=== PATIENT | female | born 1990 ===

== ENCOUNTER 2018-05-17 09:41 | Emergency (ER) | payer OTHER ==
[2018-05-17 09:46] VITALS: TEMP 98.1
[2018-05-17] MEDS ORDERED: Sodium Chloride 0.9% 1,000 ML IV STA ×2 (10:13→12:43)
--- NOTE | 2018-05-17 10:15 | ED PDOC ---
HPI: Abdomen Time Seen by Provider: 05/17/18 09:55 Chief Complaint (Nursing): Abdominal Pain Chief Complaint (Provider): Abdominal Pain History Per: Patient History/Exam Limitations: no limitations Onset/Duration Of Symptoms: Worse Since, Other (2 years) Current Symptoms Are (Timing): Constant Location Of Pain/Discomfort: RUQ Quality Of Discomfort: "Pain" Associated Symptoms: denies: Fever, Nausea, Vomiting, Diarrhea, Chest Pain, Urinary Symptoms Additional Complaint(s): 27 year old female presents to the ED complaining of constant abdominal pain onset for 2 years. She reports the pain worsened since last night. Otherwise, patient denies fever, chills, cough, chest pain, shortness of breath, constipation, nausea, vomiting or diarrhea. Also denies vaginal bleeding, vaginal discharge, dysuria, frequency, hematuria, incontinence or back pain. PMD: no family provider Abnormal Vaginal Bleeding: No Past Medical History Reviewed: Historical Data, Nursing Documentation, Vital Signs Vital Signs: Last Vital Signs Temp 98.1 F 05/17/18 09:45 Pulse 72 05/17/18 09:45 Resp 15 05/17/18 09:45 BP 110/75 05/17/18 09:45 Pulse Ox 98 05/17/18 09:53 - Medical History PMH: No Chronic Diseases - Surgical History Surgical History: Appendectomy - Family History Family History: States: Unknown Family Hx - Social History Current smoker - smoking cessation education provided: No Alcohol: None Drugs: Denies - Immunization History Hx Tetanus Toxoid Vaccination: No Hx Influenza Vaccination: No Hx Pneumococcal Vaccination: No - Home Medications Home Medications: Ambulatory Orders Medication Instructions Recorded Ciprofloxacin HCl [Cipro] 500 mg PO BID 7 Days tab 05/17/18 Dicyclomine [Dicyclomine HCl] 10 mg PO DAILY PRN 5 Days cap 05/17/18 Famotidine [Pepcid] 20 mg PO DAILY PRN #6 tab 05/17/18 Ibuprofen [Motrin] 600 mg PO TID 7 Days tab 05/17/18 Metronidazole [Flagyl] 500 mg PO TID 7 Days tablet 05/17/18 - Allergies Allergies/Adverse Reactions: Allergies Allergy/AdvReac Type Severity Reaction Status Date / Time No Known Allergies Allergy Verified 05/17/18 10:12 Review of Systems ROS Statement: Except As Marked, All Systems Reviewed And Found Negative Constitutional: Negative for: Fever, Chills Cardiovascular: Negative for: Chest Pain Respiratory: Negative for: Cough, Shortness of Breath Gastrointestinal: Positive for: Abdominal Pain. Negative for: Nausea, Vomiting, Diarrhea, Constipation Genitourinary Female: Negative for: Dysuria, Frequency, Incontinence, Hematuria, Vaginal Discharge, Vaginal Bleeding Musculoskeletal: Negative for: Back Pain Physical Exam - Reviewed Nursing Documentation Reviewed: Yes Vital Signs Reviewed: Yes - Physical Exam Appears: Positive for: Non-toxic, No Acute Distress Head Exam: Positive for: ATRAUMATIC, NORMAL INSPECTION, NORMOCEPHALIC Skin: Positive for: Normal Color, Warm, Dry. Negative for: Rash Eye Exam: Positive for: EOMI, Normal appearance, PERRL ENT: Positive for: Normal ENT Inspection Neck: Positive for: Normal, Painless ROM, Supple. Negative for: Decreased ROM Cardiovascular/Chest: Positive for: Regular Rate, Rhythm. Negative for: Murmur Respiratory: Positive for: Normal Breath Sounds. Negative for: Decreased Breath Sounds, Wheezing, Respiratory Distress Gastrointestinal/Abdominal: Positive for: Tenderness (right upper quadrant and suprapubic ) Back: Positive for: Normal Inspection. Negative for: L CVA Tenderness, R CVA Tenderness Extremity: Positive for: Normal ROM. Negative for: Tenderness, Pedal Edema, Deformity Neurologic/Psych: Positive for: Alert, Oriented (x3), Gait (steady). Negative for: Motor/Sensory Deficits - Laboratory Results Result Diagrams: 05/17/18 10:19 05/17/18 10:19 Lab Results: no acute - ECG O2 Sat by Pulse Oximetry: 98 (RA) - CT Scan/US ct Other Rad Studies (CT/US): Read By Radiologist Other Rad Interpretation: colitis - Progress ED Course And Treament: 1827: Feels much better. AAOx3. Pain free. Tolerated po. Fu with pcp. Medical Decision Making Medical Decision Making: Time: 1011 Initial impression: abdominal pain Initial plan: CMP Lipase ED urine dipstick ED urine CBC w/ Differential Normal Saline 1000 mls/hr Pepcid 20mg Toradol 15mg Urinalysis Abdomen limited [US] Scribe Attestation: Documented by Kinga Correa, acting as a scribe for Donnie Gilbert MD Provider Scribe Attestation: All medical record entries made by the Scribe were at my direction and pers onally dictated by me. I have reviewed the chart and agree that the record accurately reflects my personal performance of the history, physical exam, medical decision making, and the department course for this patient. I have also personally directed, reviewed, and agree with the discharge instructions and disposition. Disposition - Clinical Impression Clinical Impression: Colitis - Patient ED Disposition Is Patient to be Admitted: No Counseled Patient/Family Regarding: Studies Performed, Diagnosis, Need For Followup, Rx Given - Disposition Referrals: [facility] [Outside] - 05/18/18 Disposition: Routine/Home Disposition Time: 18:27 Condition: STABLE Additional Instructions: Return if not better in 3 days. Prescriptions: Ciprofloxacin HCl [Cipro] 500 mg PO BID 7 Days tab Dicyclomine [Dicyclomine HCl] 10 mg PO DAILY PRN 5 Days cap PRN Reason: Gi Distress Famotidine [Pepcid] 20 mg PO DAILY PRN #6 tab PRN Reason: Pain Ibuprofen [Motrin] 600 mg PO TID 7 Days tab Metronidazole [Flagyl] 500 mg PO TID 7 Days tablet Instructions: Colitis Print Language: BULGARIAN
[2018-05-17 10:44] LABS: BASO % 0.5 % (0.0-2.0); EOS # 0.1 K/uL (0.0-0.7); EOS % 1.6 % (0.0-4.0); HEMOGLOBIN 12.6 g/dL (12.0-16.0); LYMPH # 1.9 K/uL (1.0-4.3); LYMPH % 28.4 % (20.0-40.0); MEAN CELL VOLUME 93.3 fl (81.0-99.0); MEAN CORPUSCULAR HEMOGLOBIN 30.4 pg (27.0-31.0); MEAN CORPUSCULAR HGB CONC 32.6 g/dL (33.0-37.0); MEAN PLATELET VOLUME 7.5 fl (7.2-11.7); MONO # 0.5 K/uL (0.0-0.8); NEUT # 4.2 K/uL (1.8-7.0); NEUT % 62.5 % (50.0-75.0); NRBC % 0.1 % (0.0-0.0); RBC 4.13 Mil/uL (3.80-5.20); RED CELL DISTRIBUTION WIDTH 13.3 % (11.5-14.5); WHITE BLOOD COUNT 6.7 K/uL (4.8-10.8)
[2018-05-17 10:53] LABS: SQUAMOUS EPITHIAL 5 /hpf (0-5); URINE BILIRUBIN NEGATIVE (NEGATIVE); URINE BLOOD NEGATIVE (NEGATIVE); URINE CLARITY SLIGHTY-CLOUDY (Clear); URINE COLOR YELLOW (YELLOW); URINE GLUCOSE (UA) NEG (NEGATIVE); URINE LEUKOCYTE ESTERASE TRACE Leu/uL (Negative); URINE PROTEIN NEGATIVE (NEGATIVE); URINE UROBILINOGEN 0.2-1.0 mg/dL (0.2-1.0)
[2018-05-17 10:55] LABS: ALB/GLOB RATIO 1.4 (1.0-2.1); ALBUMIN 4.4 g/dL (3.5-5.0); ALT/SGPT 34 U/L (9-52); AST/SGOT 32 U/L (14-36); BLOOD UREA NITROGEN 16 mg/dl (7-17); CALCIUM 9.2 mg/dL (8.4-10.2); GFR NON-AFRICAN AMERICAN > 60; LIPASE 83 U/L (23-300)
[2018-05-17] MEDS ORDERED: Iohexol 240 (50 ml) PO ONE (12:43)
[2018-05-17 12:44] VITALS: RESP 18
[2018-05-17] MEDS ORDERED: Iohexol 240 (50 ml) ONE (12:45)
[2018-05-17] MEDS ORDERED: Sodium Chloride 0.9% 50 ML IV ONE (14:49)
[2018-05-17] MEDS ORDERED: Iohexol 300 100 ML IJ ONE (14:49)
--- NOTE | 2018-05-17 15:24 | CT ---
Date of service: 05/17/2018 PROCEDURE: CT Abdomen and Pelvis with contrast HISTORY: abd pain COMPARISON: Limited abdomen ultrasound 05/17/2018 as well. TECHNIQUE: Following oral and intravenous contrast administration, a CT examination of the abdomen and pelvis performed from the domes of the diaphragms to the symphysis pubis with reformatted datasets provided not only axial but also sagittal and coronal series. Coronal and sagittal reformats were generated. Contrast dose: Omnipaque 300, 95 cc Radiation dose: Total exam DLP = 411.86 mGy-cm. This CT exam was performed using one or more of the following dose reduction techniques: Automated exposure control, adjustment of the mA and/or kV according to patient size, and/or use of iterative reconstruction technique. FINDINGS: LOWER THORAX: Unremarkable. LIVER: Unremarkable. No gross lesion or ductal dilatation. GALLBLADDER AND BILE DUCTS: Unremarkable. PANCREAS: Unremarkable. No gross lesion or ductal dilatation. SPLEEN: Unremarkable. ADRENALS: Unremarkable. No mass. KIDNEYS AND URETERS: Unremarkable. No hydronephrosis. No solid mass. VASCULATURE: Unremarkable. No aortic aneurysm. No aortic atherosclerotic calcification or mural plaque present. BOWEL: Stomach appears normal. There is no bowel obstruction. No definite pericolic or perienteric reactive change. While there is no gross mural thickening throughout the large bowel, occasional thickening of haustra markings in various segments of the ascending and descending colon may indicate segmental colitis. Clinically correlate further. APPENDIX: Not identified. No definite CT pattern of appendicitis at this time. PERITONEUM: Unremarkable. No free fluid. No free air. LYMPH NODES: Unremarkable. No enlarged lymph nodes. BLADDER: Urinary bladder not fully distended with thickening of the urinary bladder wall difficult to prove or exclude. REPRODUCTIVE: Unremarkable. BONES: No acute fracture. OTHER FINDINGS: None. IMPRESSION: Borderline pattern for subtle colitis at the ascending greater than descending colonic segments though this is not definite. Questionable thickening of the urinary bladder may indicate cystitis.
--- NOTE | 2018-05-17 15:26 | US ---
Date of service: 05/17/2018 HISTORY: ruq pain COMPARISON: None. TECHNIQUE: Sonographic evaluation of the right upper quadrant of the abdomen. FINDINGS: LIVER: Measures 12.0 cm in length. Normal echogenicity of the liver parenchyma. No mass. No intrahepatic bile duct dilatation. GALLBLADDER: Gallbladder appears distended but is otherwise nonacute appearing. No associated cholelithiasis. COMMON BILE DUCT: Measures 4.0 mm. No stones. No dilatation. PANCREAS: Pancreas is obscured extensively by overlying bowel gas. RIGHT KIDNEY: Measures 9.6 cm in length. Normal echogenicity. No calculus, mass, or hydronephrosis. AORTA: No aneurysmal dilatation. IVC: Unremarkable. OTHER FINDINGS: None . IMPRESSION: Distended but otherwise unremarkable appearing gallbladder. Pancreas completely obscured by overlying bowel gas. Remainder of the limited right upper quadrant ultrasound is otherwise unremarkable.
[2018-05-17] MEDS ORDERED: Ciprofloxacin 400mg/200ml D5W 400 MG/200 ML BAG IV STA (16:48)
[2018-05-17] MEDS ORDERED: metroNIDAZOLE 500mg/100ml NS 100 ML IV STA (16:48)
[2018-05-17] MEDS ORDERED: metroNIDAZOLE 500mg/100ml NS 100 ML IVPB ONE (18:07)
[2018-05-17 19:29] VITALS: BP 102/62; PULSE 72; O2SAT 100
== END 2018-05-17 18:33 | disposition home or self-care (01) ==
LOC: H.ER 09:41
DX: K52.9 Noninfective gastroenteritis and colitis, unspecified (principal)
CPT/HCPCS: 74177; 76705; 80053; 81003; 81025; 83690; 85025; 96361; 96365; 96367; 96375; 99284; J0744; J1885; J7030; Q9966; Q9967

== ENCOUNTER 2018-10-06 09:20 | Emergency (ER) | payer OTHER ==
[2018-10-06 09:26] VITALS: BP 106/71; RESP 18; O2SAT 100; BMI 29.5
[2018-10-06] MEDS ORDERED: Sodium Chloride 0.9% 1,000 ML IV STA (10:07)
--- NOTE | 2018-10-06 10:22 | ED PDOC ---
HPI: Female Pain Time Seen by Provider: 10/06/18 09:41 Chief Complaint (Nursing): Abdominal Pain Chief Complaint (Provider): Abdominal Pain History Per: Patient History/Exam Limitations: no limitations Onset/Duration Of Symptoms: Days (x 5) Current Symptoms Are (Timing): Still Present Quality Of Discomfort: "Pain" Associated Symptoms: Vomiting, Other (chills) Additional Complaint(s): 28 year old female with a history of colitis presents to the ED for evaluation of right sided abdominal pain, back pain and vomiting since last night. Patient reports pain has been present for several days intermittently. However, last night it worsened, she vomited several times and developed chills. Vomit was non-bloody and non-bilious. Patient did not take any medications for pain. Denies urinary symptoms, diarrhea and fever. PMD: none provided Past Medical History Reviewed: Historical Data, Nursing Documentation, Vital Signs Vital Signs: Last Vital Signs Temp 97.6 F 10/06/18 09:25 Pulse 71 10/06/18 09:25 Resp 18 10/06/18 09:25 BP 106/71 10/06/18 09:25 Pulse Ox 100 10/06/18 09:25 - Surgical History Surgical History: Appendectomy - Immunization History Hx Tetanus Toxoid Vaccination: No Hx Influenza Vaccination: No Hx Pneumococcal Vaccination: No - Home Medications Home Medications: Ambulatory Orders Medication Instructions Recorded Ciprofloxacin HCl [Cipro] 500 mg PO BID 7 Days tab 05/17/18 Dicyclomine [Dicyclomine HCl] 10 mg PO DAILY PRN 5 Days cap 05/17/18 Famotidine [Pepcid] 20 mg PO DAILY PRN #6 tab 05/17/18 Ibuprofen [Motrin] 600 mg PO TID 7 Days tab 05/17/18 Metronidazole [Flagyl] 500 mg PO TID 7 Days tablet 05/17/18 - Allergies Allergies/Adverse Reactions: Allergies Allergy/AdvReac Type Severity Reaction Status Date / Time No Known Allergies Allergy Verified 05/17/18 10:12 Review of Systems ROS Statement: Except As Marked, All Systems Reviewed And Found Negative Constitutional: Positive for: Chills. Negative for: Fever Gastrointestinal: Positive for: Vomiting, Abdominal Pain (right sided) Genitourinary Female: Negative for: Dysuria, Frequency, Incontinence, Hematuria Physical Exam - Reviewed Nursing Documentation Reviewed: Yes Vital Signs Reviewed: Yes - Physical Exam Appears: Positive for: Non-toxic, No Acute Distress Head Exam: Positive for: ATRAUMATIC, NORMAL INSPECTION, NORMOCEPHALIC Skin: Positive for: Normal Color, Warm, Dry Eye Exam: Positive for: EOMI, Normal appearance, PERRL Neck: Positive for: Normal, Painless ROM, Supple Cardiovascular/Chest: Positive for: Regular Rate, Rhythm. Negative for: Murmur Respiratory: Positive for: Normal Breath Sounds. Negative for: Respiratory Distress Gastrointestinal/Abdominal: Positive for: Tenderness (epigastric, RUQ and RLQ). Negative for: Mass, Guarding, Rebound Back: Positive for: R CVA Tenderness. Negative for: L CVA Tenderness Extremity: Positive for: Normal ROM (x 4). Negative for: Deformity Neurological/Psych: Positive for: Awake, Alert, Normal Tone, Oriented (x 3). Negative for: Motor/Sensory Deficits - Laboratory Results Result Diagrams: 10/06/18 10:19 10/06/18 10:19 - ECG O2 Sat by Pulse Oximetry: 100 (RA) Pulse Ox Interpretation: Normal - Progress Re-evaluation Time: 15:41 Condition: Re-examined, Improved Medical Decision Making Medical Decision Makin:15 Impression: abdominal pain and vomiting Differential diagnoses include but are not limited to: nephrolithiasis, gallbladder disease, ovarian cyst, rupture, ovarian torsion Initial Plan: --Blood type --CT Abd & Pelvis --CMP --CBC --Lipase --Urine preg --Urine dip --NS IV 1,000 mls --Toradol 15 mg IM --Zofran 4 mg IV (+). 14:20 US Abd FINDINGS: LIVER: Measures 12.9 cm. Normal echogenicity of the liver parenchyma. No mass. No intrahepatic bile duct dilatation. GALLBLADDER: Unremarkable. No gallstones. COMMON BILE DUCT: Measures 4.0 mm. No stones. No dilatation. PANCREAS: The tail of the pancreas is obscured by overlying bowel gas with remainder unremarkable. RIGHT KIDNEY: Measures 9.6cm. 3 mm echogenic focus lower pole right kidney reflecting either small angiomyolipoma or calculus. No shadowing seen related to this structure however. No radiodense calculus is appreciated in this location on prior and pelvis CT with contrast 05/17/2018 and angiomyolipoma is favored. LEFT KIDNEY: Measures 11.4cm. Normal echogenicity. No calculus, mass, or hydronephrosis. SPLEEN: Normal in size and contour. No mass. AORTA: No aneurysmal dilatation. IVC: Unremarkable. OTHER FINDINGS: None. IMPRESSION: 1. No definite acute findings by ultrasound criteria. 2. 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 Please see discussion above. 3. The tail of the pancreas is obscured by overlying bowel gas with remainder unremarkable. 14:25 US OB FINDINGS: Patient referred only to undergo transabdominal pelvic ultrasound technique and not transvaginal technique. UTERUS: Gestational sac: Single intrauterine gestation. Heart rate: 125 bpm. age (Ultrasound estimated): 6 weeks 5 days based on mean CRL 0.8 cm. Mean sac diameter 2.6 cm. Haritha-gestational hemorrhage: None apparent Date of delivery (Ultrasound estimated) : 05/25/2019. Uterus measures 13.0 x 4.0 x 3.7 cm. Normal in size and appearance, anteverted. CERVIX: Measures 5.3 cm. Long and closed. No cervical abnormality seen. RIGHT OVARY: Measures for 2.4 x 0.9 x 1.7 cm. No mass lesion. Normal flow. LEFT OVARY: Measures 2.8 x 2.5 x 3.2 cm. No solid mass. Normal flow. Corpus luteum cyst is identified measuring 1.9 x 1.2 x 1.9 cm. FREE FLUID: None. OTHER FINDINGS: None. IMPRESSION: Single viable intrauterine gestation with estimated ultrasound age of 6 weeks 5 days (concordant with serum beta HCG level reported today 10595.0). No suspicious chorionic hemorrhage appreciable. Left corpus luteum cyst 1.9 cm. Patient preferred not to undergo transvaginal ultrasonography for this examination. Scribe Attestation: Documented by Suki Recio, acting as a scribe for Jessenia Ledezma MD. Provider Scribe Attestation: All medical record entries made by the Scribe were at my direction and personally dictated by me. I have reviewed the chart and agree that the record accurately reflects my personal performance of the history, physical exam, medical decision making, and the department course for this patient. I have also personally directed, reviewed, and agree with the discharge instructions and disposition. Disposition - Clinical Impression Clinical Impression: Abdominal pain in female, Abdominal pain during - Patient ED Disposition Is Patient to be Admitted: No Doctor Will See Patient In The: Office Counseled Patient/Family Regarding: Studies Performed, Diagnosis, Need For Followup - Disposition Referrals: [facility] [Outside] Disposition: Routine/Home Disposition Time: 15:42 Condition: GOOD Additional Instructions: DEMETRI CASTELLANO, thank you for letting us take care of you today. Your provider was Jessenia Ledezma MD and you were treated for ABD PAIN. The emergency medical care you received today was directed at your acute symptoms. If you were prescribed any medication, please fill it and take as directed. It may take several days for your symptoms to resolve. Return to the Emergency Department if your symptoms worsen, do not improve, or if you have any other problems. Please contact your doctor or call one of the physicians/clinics you have been referred to that are listed on the Patient Visit Information form that is included in your discharge packet. Bring any paperwork you were given at discharge with you along with any medications you are taking to your follow up visit. Our treatment cannot replace ongoing medical care by a primary care provider outside of the emergency department. Thank you for allowing the [facility] team to be part of your care today. If you had an X-Ray or CT scan: A Radiologist will review the ED reading if any change in treatment is needed we will contact you. If you had a blood, urine, or wound culture: It will take several days for the results, if any change in treatment is needed we will contact you. Instructions: Stomach Pain in Early Forms: [employer] (Citizen Of [place]) Print Language: VIET[place]ESE
[2018-10-06 10:31] LABS: BASO % 0.5 % (0.0-2.0); EOS % 0.6 % (0.0-4.0); LYMPH # 1.6 K/uL (1.0-4.3); LYMPH % 23.5 % (20.0-40.0); MEAN CELL VOLUME 91.9 fl (81.0-99.0); MEAN CORPUSCULAR HEMOGLOBIN 30.8 pg (27.0-31.0); MEAN CORPUSCULAR HGB CONC 33.5 g/dL (33.0-37.0); MEAN PLATELET VOLUME 7.8 fl (7.2-11.7); MONO # 0.5 K/uL (0.0-0.8); MONO % 7.9 % (0.0-10.0); NEUT # 4.6 K/uL (1.8-7.0); NEUT % 67.5 % (50.0-75.0); NRBC % 0.1 % (0.0-0.0); RBC 3.91 Mil/uL (3.80-5.20); RED CELL DISTRIBUTION WIDTH 13.3 % (11.5-14.5); WHITE BLOOD COUNT 6.9 K/uL (4.8-10.8)
[2018-10-06 10:33] LABS: ALB/GLOB RATIO 1.4 (1.0-2.1); ALBUMIN 4.2 g/dL (3.5-5.0); ALT/SGPT 37 U/L (9-52); AST/SGOT 30 U/L (14-36); BLOOD UREA NITROGEN 7 mg/dl (7-17); CALCIUM 8.8 mg/dL (8.4-10.2); GFR NON-AFRICAN AMERICAN > 60; LIPASE 75 U/L (23-300)
--- NOTE | 2018-10-06 14:23 | US ---
Date of service: 10/06/2018 HISTORY: RUQ pain RLQ pain right flank pain COMPARISON: None. TECHNIQUE: Sonographic evaluation of the abdomen. FINDINGS: LIVER: Measures 12.9 cm. Normal echogenicity of the liver parenchyma. No mass. No intrahepatic bile duct dilatation. GALLBLADDER: Unremarkable. No gallstones. COMMON BILE DUCT: Measures 4.0 mm. No stones. No dilatation. PANCREAS: The tail of the pancreas is obscured by overlying bowel gas with remainder unremarkable. RIGHT KIDNEY: Measures 9.6cm. 3 mm echogenic focus lower pole right kidney reflecting either small angiomyolipoma or calculus. No shadowing seen related to this structure however. No radiodense calculus is appreciated in this location on prior and pelvis CT with contrast 05/17/2018 and angiomyolipoma is favored. LEFT KIDNEY: Measures 11.4cm. Normal echogenicity. No calculus, mass, or hydronephrosis. SPLEEN: Normal in size and contour. No mass. AORTA: No aneurysmal dilatation. IVC: Unremarkable. OTHER FINDINGS: None. IMPRESSION: 1. No definite acute findings by ultrasound criteria. 2. 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 Please see discussion above. 3. The tail of the pancreas is obscured by overlying bowel gas with remainder unremarkable.
--- NOTE | 2018-10-06 14:29 | US ---
Date of service: 10/06/2018 PROCEDURE: OB Pelvic Ultrasound HISTORY: abdominal pain LMP: Unknown. COMPARISON: None available. FINDINGS: Patient referred only to undergo transabdominal pelvic ultrasound technique and not transvaginal technique. UTERUS: Gestational sac: Single intrauterine gestation. Heart rate: 125 bpm. age (Ultrasound estimated): 6 weeks 5 days based on mean CRL 0.8 cm. Mean sac diameter 2.6 cm. Haritha-gestational hemorrhage: None apparent. Date of delivery (Ultrasound estimated) : 05/25/2019. Uterus measures 13.0 x 4.0 x 3.7 cm. Normal in size and appearance, anteverted. CERVIX: Measures 5.3 cm. Long and closed. No cervical abnormality seen. RIGHT OVARY: Measures for 2.4 x 0.9 x 1.7 cm. No mass lesion. Normal flow. LEFT OVARY: Measures 2.8 x 2.5 x 3.2 cm. No solid mass. Normal flow. Corpus luteum cyst is identified measuring 1.9 x 1.2 x 1.9 cm. FREE FLUID: None. OTHER FINDINGS: None. IMPRESSION: Single viable intrauterine gestation with estimated ultrasound age of 6 weeks 5 days (concordant with serum beta HCG level reported today 85502.0). No suspicious chorionic hemorrhage appreciable. Left corpus luteum cyst 1.9 cm. Patient preferred not to undergo transvaginal ultrasonography for this examination.
[2018-10-06 15:57] LABS: SQUAMOUS EPITHIAL 8 /hpf (0-5); URINE BACTERIA RARE (<OCC); URINE BILIRUBIN NEGATIVE (NEGATIVE); URINE BLOOD NEGATIVE (NEGATIVE); URINE CLARITY SLIGHTY-CLOUDY (Clear); URINE COLOR YELLOW (YELLOW); URINE GLUCOSE (UA) NEG (NEGATIVE); URINE LEUKOCYTE ESTERASE TRACE Leu/uL (Negative); URINE PROTEIN 30 mg/dL (NEGATIVE); URINE UROBILINOGEN 0.2-1.0 mg/dL (0.2-1.0)
[2018-10-06 16:21] VITALS: PULSE 74; TEMP 97.8
== END 2018-10-06 16:04 | disposition home or self-care (01) ==
LOC: H.ER 09:20
DX: M54.9 Dorsalgia, unspecified (principal); R10.2 Pelvic and perineal pain; O26.91 Pregnancy related conditions, unspecified, first trimester; Z3A.01 Less than 8 weeks gestation of pregnancy; O21.9 Vomiting of pregnancy, unspecified
CPT/HCPCS: 76700; 76815; 80053; 81003; 81025; 83690; 84702; 85025; 86850; 86900; 96360; 99284; J2405; J7030